=== PATIENT | female | born 1995 | race Two or more races ===

== ENCOUNTER 2023-11-02 21:08 | Emergency (ER) | payer MEDICAID, OTHER ==
[~2023-11-02] VITALS: Ht 162.6 cm; Wt 70.0 kg
[2023-11-02 21:38] VITALS: BP 110/92; PULSE 10; RESP 20; O2SAT 96
== END 2023-11-03 04:24 | disposition left against medical advice (07) ==
LOC: ER 21:08
DX: R10.9 Unspecified abdominal pain (principal); R30.0 Dysuria; Z53.21 Procedure and treatment not carried out due to patient leaving prior to being seen by health care provider